=== PATIENT | female | born 1970 | race Caucasian/White ===

== ENCOUNTER 2020-01-10 14:08 | Emergency (ER) | payer SELFPAY ==
[2020-01-10 14:43] LABS: HEMATOCRIT 36.6 % (36.0-47.0); HEMOGLOBIN 12.4 g/dL (12.0-15.5); MEAN CORPUSCULAR HEMOGLOBIN 30.1 pg (27.0-33.4); MEAN CORPUSCULAR VOLUME 89 fl (80-97); PLATELET COUNT 321 10^3/uL (150-450); RED BLOOD COUNT 4.13 10^6/uL (3.72-5.28); RED CELL DISTRIBUTION WIDTH 14.6 % (11.5-14.0)
--- NOTE | 2020-01-10 14:53 | ER Document Report ---
ED General - General Mode of Arrival: Medic <LUCIA SANDOVAL - Last Filed: 01/10/20 17:28> <ROCIOHUBERT ANNIKA - Last Filed: 01/11/20 12:30> - General Chief Complaint: Possible Overdose Stated Complaint: POSSIBLE OVERDOSE Time Seen by Provider: 01/10/20 14:52 Primary Care Provider: VINOD FLYNN NP [Primary Care Provider] - Follow up as needed - HPI Notes: 49-year-old female presents the ED via EMS for overdose on 5 pills of 1 mg Xanax and 20 pills of 10 mg Ambien that she took last night and roughly around 8 PM. Patient was found by the when he came home into a house that was completely locked and he had a crowbar himself into the house, found patient next to the couch who was breathing but was unable to respond, he called 911 right away. EMS arrived and brought her to the emergency room. states that they got into a disagreement the night before, he left his cell phone at home. When he returned in the morning is when he found his and also found multiple text messages where she was indicating suicidal ideation. Denies any prior history of suicidal ideation or homicidal ideation. Patient denies prior history of overdosing or having suicidal ideation. She is managed for depression at [facility]. Denies fevers, chills, chest pain,palpitations, shortness of breath, dyspnea, nausea, vomiting, diarrhea, abdominal pain, hematuria,speech changes, headaches, wheezing, weakness, bowel or bladder dysfunction, saddle anesthesia, numbness or tingling in bilateral upper or lower extremities equal ly, muscle paralysis, weakness in bilateral upper or lower extremities equally or rash. Patient is responding to questions, is alert and orientated. (LORILUCIA A) Past Medical History - General Information source: Patient, Relative - Social History Smoking Status: Unknown if Ever Smoked Family History: Reviewed & Not Pertinent <LUCIA SANDOVAL - Last Filed: 01/10/20 17:28> Review of Systems - Review of Systems Constitutional: See HPI EENT: No symptoms reported Cardiovascular: No symptoms reported Respiratory: No symptoms reported Gastrointestinal: No symptoms reported Genitourinary: No symptoms reported Female Genitourinary: No symptoms reported Musculoskeletal: No symptoms reported Skin: No symptoms reported Hematologic/Lymphatic: No symptoms reported Neurological/Psychological: Suicidal ideation <LUCIA SANDOVAL - Last Filed: 01/10/20 17:28> Physical Exam <LUCIA SANDOVAL - Last Filed: 01/10/20 17:28> - Vital signs Vitals: Resp Pulse Ox 20 97 01/10/20 14:18 01/10/20 14:18 - Notes Notes: PHYSICAL EXAMINATION: reviewed vital signs by RN GENERAL: Well-appearing, chronically ill and in no acute distress. HEAD: Atraumatic, normocephalic. EYES: Pupils equal round and reactive to light, extraocular movements intact, conjunctiva are normal. ENT: Nares patent, oropharynx clear without exudates. Moist mucous membranes. NECK: Normal range of motion, supple without lymphadenopathy LUNGS: Breath sounds clear to auscultation bilaterally and equal. No wheezes rales or rhonchi. HEART: Regular rate and rhythm without murmurs ABDOMEN: Soft, nontender, nondistended abdomen. No guarding, no rebound. No masses appreciated. Female : deferred Musculoskeletal: Normal range of motion, no pitting or edema. No cyanosis. NEUROLOGICAL: Normal speech, normal gait. Normal sensory, motor exams PSYCH: Normal mood, normal affect. SKIN: Warm, Dry, normal turgor, no rashes scratches to bilateral forearms and bi lateral lower extremities, no burrowing, linear pattern or satellite lesions noted (LUCIA SANDOVAL) Course - Laboratory Result Diagrams: 01/10/20 14:30 01/10/20 14:30 <LUCIA SANDOVAL - Last Filed: 01/10/20 17:28> - Laboratory Result Diagrams: 01/10/20 14:30 01/10/20 17:00 <HUBERT CHAN - Last Filed: 01/11/20 12:30> - Re-evaluation Re-evalutation: 01/10/20 17:32 Afebrile vital stable no distress. Patient arrived on room air, pulse ox is at 94%. Nurse's notes reviewed. Mental health is already been at bedside to see patient at arrival. Patient is responding to questions, she states she does feel sleepy is asking for her service dog the night. Patient is admitting to suicidal ideation and is states that she is tired of screwed everything up. She will be under IVC paperwork. Awaiting for lab results. Patient's EKG negative for STEMI. Vitals are stable. (LUCIA SANDOVAL) 01/11/20 12:23 Patient is a 49-year-old female who was brought in for SI and overdose. Patient had a restful night apparently. This morning, patient and spouse have been agitated about delay with inpatient psychiatric placement. Patient has also not wanted to take medications due to the cost of them in the hospital. Patient had a visit from a service dog and has been somewhat calmer since then . She is medically stable. She has been accepted at [facility] and requires transfer due to lack of inpatient psychiatry at this facility. Law enforcement will transport. (HUBERT CHAN) - Vital Signs Vital signs: Temp Pulse Resp BP Pulse Ox 98.1 F 80 20 127/65 H 99 01/11/20 04:20 01/11/20 04:20 01/11/20 04:20 01/11/20 04:20 01/11/20 04:20 - Laboratory Laboratory results interpreted by me: 01/10/20 01/10/20 14:30 17:00 WBC 13.0 H RDW 14.6 H Seg Neuts % (Manual) 88 H Band Neutrophils % 1 L Lymphocytes % (Manual) 4 L Monocytes % (Manual) 1 L Abs Neuts (Manual) 11.6 H Salicylates < 1.0 L Acetaminophen < 10 L Discharge <CHINA SANDOVALBOZENA Issa - Last Filed: 01/10/20 17:28> <HUBERT CHAN - Last Filed: 01/11/20 12:30> - Discharge Clinical Impression: Suicidal ideation Overdose Qualifiers: Encounter type: initial encounter Injury intent: intentional self-harm Qual ified Code(s): T50.902A - Poisoning by unspecified drugs, medicaments and biological substances, intentional self-harm, initial encounter Condition: Stable Disposition: PSYCH HOSP/UNIT Referrals: VINOD FLYNN NP [Primary Care Provider] - Follow up as needed
[2020-01-10 15:13] LABS: ABSOLUTE LYMPHOCYTES# (MANUAL) 0.8 10^3/uL (0.5-4.7); ABSOLUTE MONOCYTES # (MANUAL) 0.1 10^3/uL (0.1-1.4); BAND NEUTROPHILS % (MANUAL) 1 % (3-5); EOSINOPHILS % (MANUAL) 4 % (0-6); LYMPHOCYTES % (MANUAL) 4 % (13-45); MONOCYTES % (MANUAL) 1 % (3-13); SEGMENTED NEUTROPHILS % (MAN) 88 % (42-78); TOTAL CELLS COUNTED 100
[2020-01-10 15:15] LABS: ANISOCYTOSIS SLIGHT; OVALOCYTES SLIGHT; PLATELET COMMENT ADEQUATE; POIKILOCYTOSIS SLIGHT
[2020-01-10 15:19] LABS: BASOPHILS % (MANUAL) 0 % (0-2)
--- NOTE | 2020-01-10 15:34 | PSYCHOLOGICAL NOTE ---
Psych Note - Psych Note Date seen by psych provider: 01/10/20 Time seen by psych provider: 14:25 Psych Note: Patient is a 49-year-old female who presents to ED via EMS for overdose on 5 Xanax 1MG and 20 Ambien 10MG. The following collateral information was obtained by . Patient is a patient of [facility] and Melina Lin is her therapist for concerns with blood pressure and anxiety. reports they got into an argument regarding something they found on their 18 year old son's phone. left for the night and slept in their camper without his cell phone, and did not return home until sometime this morning. When returned home the front door was shut and locked. Patient had to break into the home to gain entry. Patient was found on her back passed out on the living room floor soaked in urine. Patient would not disclose what she took or how much of what she took. bathed and became concerned when he observed patient had little muscle tone, was going in and out of consciousness, and was confused. contacted . Patient reports increased stressors related to finances, job related stress, and children. reports he has told patient that he would leave and not return during a prior argument. This was referenced in text message patient sent to . Patient expressed concern that he wants his to be treated and expressed financial concern as to how they will "pay this hospital bill." showed clinician text messages that were sent by patient indicating this was a suicide attempt. Patient stated she took pills because she did not "want a bloody mess." reports patient has access to weapons in the home. describes patient was easily frustrated over "the smallest things." states patient "picks fights with me for attention." reports patient has endorsed suicidal ideation (I'd be better off ) with Melina Lin before, however he described it as a ploy for attention. Patient is tearful and is crying for her "service dog" Thelma. Patient reports she took the Xanax and Ambien at approximately 8:00pm last night. Patient states she attempted suicide because she is "tired of screwing up everything." Patient states she is "every time there is an issue he [] thinks I blame him." Patient denies prior suicide attempts. Patient states she has mental health diagnosis of "Anger Control" and Depression. Clinician notes what patient reports as a rash and open sores on her arms and legs. Check in conducted with patient with her friend Mariann at bedside. Patient gave permission to speak freely. Patient states she did not remember earlier conversation with clinician. Clinician reminded patient of IVC petition and the possibility of inpatient psychiatric hospitalization. Patient requested to go home and see her dog. Clinician replied that would not be possible. Patient states she does not have the financial means to pay for inpatient psychiatric treatment. Clinician encouraged patient to focus on healing. Patient's friend remarked she was "in shock" when patient's informed her of the suicide attempt, and that behavior was out of character for patient. Patient is alert and oriented to person, place, time and circumstance. Patient denies suicidal and homicidal ideations. Patient is still experiencing the effects of the substances, therefore is still somewhat altered cognitively. Impression/Plan: Patient is recommended for IVC. Plan is to obtain appropriate placement when patient no longer requires medical intervention for stabilization as inpatient psychiatric facilities are unable to provide that level of care. Patient will be reevaluated. Dr. Lagunas was consulted on the care and management of this patient; attending physician is in agreement with recommendations and disposition.
[2020-01-10 15:58] LABS: APPEARANCE,URINE CLEAR; BILIRUBIN,URINE NEGATIVE (NEGATIVE); COLOR,URINE YELLOW; GLUCOSE, URINE NEGATIVE (NEGATIVE); KETONES,URINE NEGATIVE (NEGATIVE); LEUKOCYTE ESTERASE,URINE NEGATIVE (NEGATIVE); NITRITE,URINE NEGATIVE (NEGATIVE); PROTEIN,URINE NEGATIVE (NEGATIVE); UROBILINOGEN,URINE NEGATIVE mg/dL (<2.0)
[2020-01-10 16:15] LABS: URINE AMPHETAMINES SCREEN NEGATIVE; URINE BARBITURATES SCREEN NEGATIVE; URINE COCAINE SCREEN NEGATIVE; URINE MARIJUANA (THC) SCREEN NEGATIVE; URINE METHADONE SCREEN NEGATIVE; URINE PHENCYCLIDINE SCREEN NEGATIVE
[2020-01-10 16:21] LABS: URINE BENZODIAZEPINES SCREEN UNCONFIRMED POSITIVE
--- NOTE | 2020-01-10 17:27 | EKG REPORT ---
SEVERITY:- NORMAL ECG - SINUS RHYTHM : Confirmed by: Ra Rhodes MD 10-Jan-2020 17:27:19
[2020-01-10 17:32] LABS: ALBUMIN 4.4 g/dL (3.5-5.0); ALKALINE PHOSPHATASE 88 U/L (38-126); ANION GAP 12 (5-19); ASPARTATE AMINO TRANSFERASE 34 U/L (14-36); BILIRUBIN,DIRECT 0.3 mg/dL (0.0-0.4); BILIRUBIN,TOTAL 0.4 mg/dL (0.2-1.3); BLOOD UREA NITROGEN 17 mg/dL (7-20); CALCIUM 9.8 mg/dL (8.4-10.2); CARBON DIOXIDE 26 mmol/L (22-30); CHLORIDE 101 mmol/L (98-107); GLUCOSE 82 mg/dL (75-110); POTASSIUM 4.5 mmol/L (3.6-5.0); TOTAL PROTEIN 7.9 g/dL (6.3-8.2)
[2020-01-10 17:33] LABS: ACETAMINOPHEN < 10 ug/mL (10-30); ALCOHOL < 10 mg/dL (NONE DETECTED); SALICYLATE < 1.0 mg/dL (2.0-20.0)
--- NOTE | 2020-01-11 13:26 | PSYCHOLOGICAL NOTE ---
Psych Note - Psych Note Date seen by psych provider: 01/11/20 Time seen by psych provider: 09:35 Psych Note: Reason for Consult: Intentional overdose Check in conducted with patient: Patient seen the first time with at bedside per patient's request. Patient reports she took the medication "to sleep." she reports she was upset at the time. She denies that she was trying to kill herself but confirms she normal does not take the medication; when she does she only takes one pill. She reports she left and she very upset. When asked if her was trying to get her to come home, she denies and says she was trying to hurt herself. She reports she wants to go home. She presents very childlike with significant mood liability. She refuses to make eye contact presenting similar to "pouting," throws things (pillow and blanket against the wall) when angry, and then throwing her body down on the stretcher and burying her head in the pillow crying. Patient is unable to engage appropriately with clinician without frequent crying bouts and irritability. Patient states "it is fine now, my is back and he promises to not leave again." Patient is reminded this is not the first time they have had relationship discord and there is no guarantee the patient will not experience relationship discord with her again. Patient again is crying and states she wants to go home and states she was promised by her that she would go home. Patient's reports the patient will be going home today and tells clinician that if the police need to be call to "do it" because he does not "care, she will be leaving today" with him. Clinician attempted to explain IVC process and the concerns for the patient presenting after an intentional overdose with continued mood liability today. He is unwilling or unable to accept this information. He continues to reports he was told by hospital staff she would most likely be cleared medically and could go home "today at 8am." Clinician apologized that the patient and misunderstood the information provided and attempted to clarify again that the patient was placed on Full IVC status yesterday and what that entails. Patient's reports the patient will not be taking any medication from the hospital because they will not be paying "$20 for an aspirin." He reports he would like to give the patient her home medications. Clinician explained any medications the patient takes must be verified by pharmacy if it is a home medication. They continue to disclose they would like the family therapy to with the patient. The patient is very tearful and [facility] staff facilitated a one hour visit with the family dog. Clinician notes the dog is not registered therapy dog, it is currently in training and is training for the patient's and his diabetes. Clinician spoke with pharmacy. they reports they only verify home medications if they do not care in there formulary or the patient can self administer with a doctor's order. (Patient is unable to self administer medication while under IVC). Clinician spoke with patient again after left to take the family dog home after the visit. She continues to present labile with frequent bouts of tears. She continues to to state she wants to go home and starts to change her reports of events. She denies she was attempting to harm herself and states she will be fine now because her is back home and he "promises to stay." She is unable/unwilling to discuss any other possibility or self-reliance. Patient states this is the first time she ever did anything like this and "promises not to do it again." When asked what changed from yesterday to today she reports "God came back into my mind .... My mom never gave up, my dad never gave him up so I shouldn't" Patient continues to present child like in manner and stats she wants to go home and talk to her therapist and "be with her Zoroastrianism family." Impression/Plan: Patient is recommended to continue under IVC. There is significant concern the patient is unwilling/unable to engage appropriately. Patient presents with labile mood and affect with frequent bouts of tears and behavioral outbursts which include throwing pillows and blankets against the wall, throwing her body down onto the stretcher bearing her face in the pillow and crying, and refusing to make eye contact while making the face as if pouting. Patient presented after intentional overdosing. Patient has been accepted to [facility] and transportation has been requested. Dr. Lagunas was consulted on the care and management of this patient; attending physician is in agreement with recommendations and disposition.
[2020-01-11 15:24] VITALS: BP 140/71
== END 2020-01-11 15:24 ==
LOC: ER 14:08
DX: T42.4X2A Poisoning by benzodiazepines, intentional self-harm, initial encounter (principal); T42.6X2A Poisoning by other antiepileptic and sedative-hypnotic drugs, intentional self-harm, initial encounter; Y92.009 Unspecified place in unspecified non-institutional (private) residence as the place of occurrence of the external cause; F32.9 Major depressive disorder, single episode, unspecified; S50.812A Abrasion of left forearm, initial encounter; S50.811A Abrasion of right forearm, initial encounter; S80.812A Abrasion, left lower leg, initial encounter; S80.811A Abrasion, right lower leg, initial encounter; X58.XXXA Exposure to other specified factors, initial encounter; Z63.0 Problems in relationship with spouse or partner
CPT/HCPCS: 36415; 80053; 80307; 81001; 83605; 84484; 85025; 87040; 93005; 93010; 99285